=== PATIENT | female | born 1970 | race Two or more races ===

== ENCOUNTER 2017-09-25 22:58 | Emergency (ER) | payer BC ==
[~2017-09-25] VITALS: Ht 165.1 cm; Wt 72.6 kg
[2017-09-25] MEDS ORDERED: ADVAIR HFA 115/12 GM (23:15)
[2017-09-25] MEDS ORDERED: ALTACE5 MG (23:15)
== END 2017-09-26 00:23 | disposition home or self-care (01) ==
LOC: ER 22:58
DX: S62.656A Nondisplaced fracture of middle phalanx of right little finger, initial encounter for closed fracture (principal); W18.39XA Other fall on same level, initial encounter; Y93.01 Activity, walking, marching and hiking; Y92.511 Restaurant or cafe as the place of occurrence of the external cause; Y99.8 Other external cause status